=== PATIENT | male | born 1960 | race Caucasian/White ===

== ENCOUNTER 2020-11-22 09:21 | Outpatient (CLI) | payer OTHER, SELFPAY ==
--- NOTE | 2020-11-22 09:26 | NM_ITS ---
WS: [id number] NUCLEAR MEDICINE HIDA SCAN CLINICAL INFORMATION: RUQ ABDOMINAL PAIN TECHNIQUE: Following intravenous administration of mCi of technetium 99m mebrofenin, images of the ab domen were obtained over the course of 60 minutes. Next, gallbladder ejection fraction was determined by obtaining preprandial and one-hour postprandial images of the gallbladder following oral ingestio n of Ensure. COMPARISON: Ultrasound gallbladder October 02, 2020 FINDINGS: Normal hepatic uptake at 5 minutes. Hepatomegaly. Gallbladder is not visualized until 90 minutes. Nor mal common bile duct and small bowel activity.Small photopenic defect in the left hepatic lobe may re present hepatic cyst but is nonspecific. This could be further evaluated with contrast-enhanced CT ab domen pelvis liver protocol. Abnormal Gallbladder ejection fraction 1%. NV/NM hepatobiliary w phar* [id number] IMPRESSION: 1. Gallbladder is not visualized until 90 minutes with only 1% ejection fracti on. Findings consistent with gallbladder dysfunction and suggestive of chronic cholecystitis. 2. Normal common bile duct and small bowel activity. No evidence of choledocho lithiasis. 3. Small photopenic defect in the left hepatic lobe may represent hepatic cyst but is nonspecific. This could be further evaluated with contrast-enhanced CT abdomen pelvis liver protocol.
== END 2020-11-22 09:22 | disposition home or self-care (01) ==
LOC: NM 09:23
PROVIDERS: PCP Family Medicine; Visit Provider Family Medicine
DX: R10.11 Right upper quadrant pain (principal)
CPT/HCPCS: 78227; A9537

== ENCOUNTER 2020-12-03 13:07 | Outpatient (CLI) | payer OTHER, SELFPAY ==
--- NOTE | 2020-12-03 13:21 | USCV_ITS ---
Juan Escobar Age: 60 Gender: M : 1960 Exam Date: 12/03/2020 13:41 Ordering Phys: Momo Thacker MD Technologist: Ashanti Morales [place] [facility] [place]: PRESLEY BP: 165 / 88 HR: 84 Rhythm: Sinus Technical Quality: Poor because of body habitus MEASUREMENTS (Male / Female) Normal Values 2D ECHO LV Diastolic Diameter PLAX 4.5 cm 4.2 - 5.9 / 3.9 - 5.3 cm LV Systolic Diameter PLAX 3.4 cm LV Chamber Size 4.2 cm IVS Diastolic Thickness 1.2 cm 0.6 - 1.0 / 0.6 - 0.9 cm IVS Systolic Thickness 1.7 cm LVPW Diastolic Thickness 1.3 cm 0.6 - 1.0 / 0.6 - 0.9 cm LVPW Systolic Thickness 1.6 cm RV Chamber Size 2.3 cm LVOT Diameter 2.0 cm LA Diameter 4.5 cm LA Width 2.9 cm LA Height 4.0 cm RA Width 1.8 cm RA Height 4.0 cm Aorta at Sinotubular Diameter 2.9 cm M-MODE LV Diastolic Diameter MM 6.8 cm 4.2 - 5.9 / 3.9 - 5.3 cm LV Systolic Diameter MM 5.1 cm LV Ejection Fraction MM Teich 48.5 % IVS Diastolic Thickness MM 0.8 cm 0.6 - 1.0 / 0.6 - 0.9 cm IVS Systolic Thickness MM 1.2 cm LVPW Diastolic Thickness MM 0.9 cm 0.6 - 1.0 / 0.6 - 0.9 cm LVPW Systolic Thickness MM 1.2 cm RV Diastolic Diameter MM 1.0 cm Aortic Annulus Diameter 3.1 cm LA Ao Ratio MM 1.6 MV E Point Septal Separation 0.3 cm DOPPLER AV Peak Velocity 123.0 cm/s LVOT Peak Velocity 82.0 cm/s AV Area Cont Eq vti 2.2 cm squared AV Area Cont Eq pk 2.1 cm squared MV Area PHT 4.1 cm squared Mitral E to A Ratio 0.8 MV E' Velocity 33.6 cm/s Mitral E to MV E' Ratio 10.1 Mitral E to LV E' Lateral Ratio 7.9 Mitral E to LV E' Septal Ratio 14.2 TV Peak E Velocity 78.0 cm/s PV Peak Velocity 70.0 cm/s RV Acceleration Time 0.1 s RV Ejection Time 0.2 s RV AcT/ET 0.4 FINDINGS Left Ventricle Normal left ventricular cavity size. Normal left ventricular systolic function. No regional wall motion abnormalities. Left ventricular ejection fraction is estimated at 55 %. Grade I/IV diastolic dysfunction (abnormal relaxation filling pattern), normal to mildly elevated filling pressures. Right Ventricle Normal right ventricular size. RVSP could not be calculated due to incomplete tricuspid regurgitation velocity profile. Right Atrium The right atrium is normal in size. Left Atrium The left atrium is normal in size. Mitral Valve Structurally normal mitral valve. No mitral valve regurgitation. Aortic Valve No aortic valve stenosis. No aortic valve regurgitation. Tricuspid Valve Tricuspid valve not well visualized. Pulmonic Valve Pulmonic valve not well visualized. Pericardium Normal pericardium without effusion. Aorta Normal ascending aorta dimension. CONCLUSIONS 1-Normal left ventricular cavity size. Normal left ventricular systolic function. No regional wall motion abnormalities. Left ventricular ejection fraction is estimated at 55 %. Grade I/IV diastolic dysfunction (abnormal relaxation filling pattern), normal to mildly elevated filling pressures. 2-There is no pericardial effusion. 3-No significant valve abnormalities. 4-There are no prior echocardiogram studies to compare. Areli Richard MD (Electronically Signed) Final Date: 03 December 2020 19:08 S
== END 2020-12-03 13:08 | disposition home or self-care (01) ==
PROVIDERS: PCP Family Medicine; Visit Provider Family Medicine
DX: R06.09 Other forms of dyspnea (principal)
CPT/HCPCS: 93306

== ENCOUNTER 2024-07-29 13:47 | Emergency (ER) | payer MEDICARE, SELFPAY ==
[2024-07-29] VITALS (8 sets, daily range): BP systolic 141–197; BP diastolic 84–143; PULSE 89–112; RESP 16–18; TEMP 37.1; O2SAT 93–98; BMI 53.2
[2024-07-29 14:54] LABS: Basophils % 0.4 %; Eosinophils # 0.1 10^3/uL (0.0-0.8); Eosinophils % 0.4 %; Hematocrit 50.3 % (37-53); Lymphocytes # 2.3 10^3/uL (0.8-4.8); Lymphocytes % 19.9 %; Mean Corpuscular HGB Conc 31.8 g/dL (30-55); Mean Corpuscular Hemoglobin 30.1 pg (27-33); Mean Corpuscular Volume 94.5 fl (82-101); Monocytes % 8.7 %; Neutrophils # 7.97 10^3/uL (1.8-7.7); Neutrophils % 70.3 %; Nucleated Red Blood Cells % 0 %; Platelet Count 368 10^3/cmm (157-399); Red Blood Count 5.32 10^6/uL (3.85-5.65); Red Cell Distribution Width 14.2 % (12.1-15.1); White Blood Count 11.34 10^3/uL (3.29-11.43)
[2024-07-29 15:12] LABS: Alanine Aminotransferase < 5 U/L (0-41); Alkaline Phosphatase 89 U/L (40-130); Anion Gap 17.6 (5-19); Aspartate Amino Transferase 24 U/L (0-40); Blood Urea Nitrogen 17 mg/dL (8-23); Calcium 10.1 mg/dL (8.5-10.5); Carbon Dioxide 31 mmol/L (22-29); Chloride 98 mmol/L (98-107); Creatinine Clr Calc Pharmacy 111.3086; Globulin 3.6 g/dL (1.3-4.6); Glomerular Filtration Rate 67.6 mL/min (90-130); Glucose 153 mg/dL (65-115); Lipase 21 U/L (13-60); Magnesium 2.1 mg/dL (1.7-2.3); Osmolality Calculated 299 mOsm/kg (285-295); Potassium 4.6 mmol/L (3.5-5.1); Sodium 142 mmol/L (136-145); Total Protein 7.6 g/dL (6.6-8.7)
[2024-07-29] MEDS: lactated ringers 1,000 ML 999 ML IV (15:13)
--- NOTE | 2024-07-29 16:13 | CTR_ITS ---
PROCEDURE INFORMATION: Exam: CT Abdomen And Pelvis With Contrast Exam date and time: 07/29/2024 4:26 PM Age: 63 years old Clinical indication: Nausea and vomiting; Abdominal pain; Periumbilical; Prior surgery; Surgery date: 6+ months; Surgery type: Umbilical hernia, gallbladder; Additional info: N/v/d with abdominal pain TECHNIQUE: Imaging protocol: Computed tomography of the abdomen and pelvis with contrast. Radiation optimization: All CT scans at this facility use at least one of these dose optimization techniques: automated exposure control; mA and/or kV adjustment per patient size (includes targeted exams where dose is matched to clinical indication); or iterative reconstruction. Contrast material: OMNI 350; Contrast volume: 100 ml; Contrast route: INTRAVENOUS (IV); COMPARISON: NM hepatobiliary w phar* [id number] 11/22/2020 9:26 AM RADIATION DOSE METRICS: Total DLP (mGy-cm): 1591.83 FINDINGS: Lungs: Visualized lung bases are clear. Liver: Normal appearance of the liver. Gallbladder and biliary ducts: The patient is status post cholecystectomy. Pancreas: Normal appearance of the pancreas. No ductal dilation. Spleen: Normal appearance of the spleen. Adrenal glands: There is a fat density mass in the left adrenal gland measuring 2.8 cm incidentally noted suggesting a myelolipoma. Normal right adrenal gland. Kidneys and ureters: Multiple too small to characterize bilateral renal hypodensities likely representing small cysts. No hydronephrosis or nephrolithiasis bilaterally. Stomach and bowel: There is fluid in the stomach without evidence of significant luminal dilation. Proximal small bowel is normal in caliber however within the mid small bowel there is increased luminal diameter with intraluminal fluid concerning for bowel obstruction. This appears to transition within the anterior abdominal wall hernia. No evidence of pneumatosis or portal venous gas. There is minimal mesenteric edema associated with the dilated small bowel loops. There is moderate diverticular disease of the colon. No evidence of diverticulitis. Appendix: The appendix is identified and normal in appearance. No evidence of appendicitis. Intraperitoneal space: Minimal free fluid dependently in the pelvis. No evidence of free air. Vasculature: There is mild calcific atherosclerotic disease of the abdominal aorta. No evidence of an aneurysm. Pelvic calcifications, likely representing incidental phleboliths. Lymph nodes: Unremarkable. No enlarged lymph nodes. Urinary bladder: Normal appearance of the urinary bladder. No intravesicular stone. Reproductive: Unremarkable appearance of the prostate. Bones/joints: Moderate degenerative changes of the visualized spine. No fracture or aggressive osseous lesion is seen. Soft tissues: There is a lower anterior abdominal wall hernia to the right of midline containing a loop of bowel the findings concerning for obstruction. CT/CT abdomen pelvis w con* [id number] IMPRESSION: 1. Findings concerning for small bowel obstruction with transition point in and anterior abdominal wall hernia. Mild mesenteric edema associated with the dilated small bowel loops. No evidence of pneumatosis or portal venous gas to suggest advanced ischemia. Recommend surgical consultation. 2. Multiple chronic and incidental findings as detailed above. COMMENTS: Consistent with the [employer]'s Incidental Findings Committee white paper (J Am Shanice Radiol 2018): Any incidental renal lesion less than 1 cm or classified as too small to characterize, or any incidental cystic renal lesion characterized as simple-appearing, is likely benign. No follow-up imaging is recommended for these lesions per consensus recommendations based on imaging criteria.
[2024-07-29] MEDS: iohexol 350 mg/mL 500 mL Btl (per mL) IV (16:29)
[2024-07-29 16:30] LABS: Lactic Sepsis W/Reflex 1.9 mmol/L (0.5-2.2)
[2024-07-29 16:31] LABS: C Reactive Protein 14.3 mg/L (0.0-4.9)
[2024-07-29] MEDS: sodium chloride 0.9% 1,000 ML 999 ML IV (16:42)
--- NOTE | 2024-07-29 16:43 | ED_ITS ---
HPI - Abdominal Pain 2 General: Chief Complaint: Abdominal Pain Stated Complaint: vomiting, cramping, dizzy Time Seen by Provider: 07/29/24 15:50 History of Present Illness: 63-year-old male presents emergency depa rtment with a chief complaint of nausea vomiting followed by diarrhea patient Gurpreet about a week and a half ago he was sick with nausea vomiting he thought he improved from it he reports generalized abdominal cramping in which he had nausea but developed nonbloody emesis with dry heaves patient Gurpreet is a prior history of cholecystectomy reports no other abdominal surgeries patient reports generalized malaise and fatigue he does not endorse any blood in his vomitus. He reports no recent sick or ill contacts or any other associated symptoms. Associated Symptoms: Reports diarrhea, nausea and vomiting; Denies chills and fever(s) Related Data Allergies Allergy/AdvReac Type Severity Reaction Status Date / Time No Known Allergies Allergy Verified 07/29/24 14:14 Review of Systems 2 General: Reports: 10 or more systems reviewed and unremarkable except in HPI and below Const: Denies: fever(s), chills, fatigue or malaise Eyes: Denies: change in vision or blurry vision Card: Denies: chest pain or palpitations Resp: Denies: dyspnea or productive cough GI: Reports: abdominal pain, nausea, vomiting and diarrhea : Denies: flank pain Musc: Denies: extremity pain or extremity swelling Skin/Breast: Denies: rash or pruritus Neuro: Denies: headache(s) Psych: Denies: anxiety or depression Sacha/Lymph: Denies: easy bleeding All/Imm: Denies: urticaria, throat swelling or facial swelling Physical Exam 2 Const: COMMON NORMALS: no acute distress, patient oriented x3 and healthy appearing OTHER: Somewhat somewhat flat affect appreciated afebrile nontoxic-appearing HENMT: COMMON NORMALS: normocephalic and atraumatic HEAD & SCALP: n ormocephalic and atraumatic Eye: COMMON NORMALS: Equal, round and reactive pupils present and EOMs intact bilaterally PUPIL: Yes Equal, round and reactive pupils present Neck/C-Spine: COMMON NORMALS: full ROM, supple and no JVD Lymph: LYMPHATIC: no lymphadenopathy noted Chest: COMMONS NORMALS: normal inspection of the chest and normal palpation of entire chest wall Resp: COMMON NORMALS: normal respiratory effort, No retractions and clear to auscultation bilaterally EFFORT & INSPECTION: Yes able to speak in complete sentences and Yes symmetric chest movement AUSCULTATION: clear to auscultation bilaterally Cardio: COMMON NORMALS: no JVD, regular rate and regular rhythm RATE: r egular rate RHYTHM: regular rhythm GI: COMMON NORMALS: Normal to inspection, nondistended, normoactive bowel sounds present and Soft to palpation; negative for non-tender INSPECTION: Yes normal to inspection PALPATION: Y es Soft to palpation OTHER: General abdominal tenderness noted no guarding or rebound appreciated slightly hyperactive bowel sounds noted x 4 quadrants : COMMON NORMALS: Yes no CVA tenderness BLADDER/KIDNEY EXAM: Yes no CVA tenderness Back/Pelvis: COMMON NORMALS: no CVA tenderness Extremity: COMMON NORMALS: normal to inspection and full ROM Neuro: COMMON NORMALS: patient oriented x3, CN's II-XII intact bilaterally, moves all extremities and no focal motor deficits Psych: COMMON NORMALS: mental status grossly normal, Normal thought process present, cooperative and normal affect THOUGHT PROCESS: Normal thought process present Skin: COMMON NORMALS: no rashes or lesions noted GENERAL SKIN EXAM: no rashes or lesions noted Course 2 Vital Signs: Vital signs: Vital Signs Temperature 98.7 F 07/29/24 14:07 Pulse Rate 105 H 07/29/24 19:48 Respiratory Rate 16 07/29/24 19:48 Blood Pressure 174/107 07/29/24 19:48 Pulse Oximetry 98 07/29/24 19:48 Oxygen Delivery Me thod Room Air 07/29/24 19:48 MDM - Abdominal Pain Medical Decision Making Due to patient's symptoms and condition IV will be established IV fluids provided for hydration with lab work imaging obtained will continue to follow. Patient's lab work came back reassuring patient however was found to have a small bowel obstruction with a transition point anterior abdominal wall hernia with some mild mesenteric edema I discussed patient's case with Dr. Glover- call general surgeon that will be directly assessing the patient patient will have an NG tube ordered patient was complaining of increased pain and discomfort will be providing him some Dilaudid as well as Zofran for his symptoms will continue to follow. Anticipate need for probable surgical management. Will continue to follow. Discussed patient's case with the on-call surgeon we are unable to take care of this patient here due to his BMI is 53.3 as he weighs 173 kg and only 1.8 m tall in which it appears that will be a complicated surgery that we do not have the q. ability to take care of managing at our facility recommending transfer to higher level care due to patient and family's request initiated contact with [facility] will continue to follow. Patient will have an NG tube placed by nursing staff. Patient was accepted by [facility] by surgeon on-call Dr. Glze currently waiting on bed assignment patient will be going by ground transportation. Lab Data 07/29/24 14:48 07/29/24 14:48 Labs/Radiology: Radiology Impressions Abdomen/Pelvis CT 07/29/24 16:13 IMPRESSION: 1. Findings concerning for small bowel obstruction with transition point in and anterior abdominal wall hernia. Mild mesenteric edema associated with the dilated small bowel loops. No evidence of pneumatosis or portal venous gas to suggest advanced ischemia. Recommend surgical consultation. 2. Multiple chronic and incidental findings as detailed above. COMMENTS: Consistent with the [employer]'s Incidental Findings Committee white paper (J Am Shanice Radiol 2018): Any incidental renal lesion less than 1 cm or classified as too small to characterize, or any incidental cystic renal lesion characterized as simple-appearing, is likely benign. No follow-up imaging is recommended for these lesions per consensus recommendations based on imaging criteria. ADDENDUM: 07/29/24 1808 THIS REPORT CONTAINS FINDINGS THAT MAY BE CRITICAL TO PATIENT CARE. The findings were verbally communicated by me via telephone conference to AMILCAR YANG at 6:07 PM CDT on 07/29/2024. The findings were acknowledged and understood. Laboratory Results WBC 11.34 10^3/uL (3.29-11.43) 07/29/24 14:48 RBC 5.32 10^6/uL (3.85-5.65) 07/29/24 14:48 Hgb 16.00 g/dL (11.27-16.99) 07/29/24 14:48 Hct 50.3 % (37-53) 07/29/24 14:48 MCV 94.5 fl (82-101) 07/29/24 14:48 MCH 30.1 pg (27-33) 07/29/24 14:48 MCHC 31.8 g/dL (30-55) 07/29/24 14:48 RDW 14.2 % (12.1-15.1) 07/29/24 14:48 Plt Count 368 10^3/cmm (157-399) 07/29/24 14:48 MPV 10.0 fL (7.4-10.4) 07/29/24 14:48 Neut % (Auto) 70.3 % 07/29/24 14:48 Lymph % (Auto) 19.9 % 07/29/24 14:48 [place] % (Auto) 8.7 % 07/29/24 14:48 Eos % (Auto) 0.4 % 07/29/24 14:48 Baso % (Auto) 0.4 % 07/29/24 14:48 Neut # (Auto) 7.97 10^3/uL (1.8-7.7) H 07/29/24 14:48 Lymph # (Auto) 2.3 10^3/uL (0.8-4.8) 07/29/24 14:48 [place] # (Auto) 1.0 10^3/uL (0.2-0.9) H 07/29/24 14:48 Eos # (Auto) 0.1 10^3/uL (0.0-0.8) 07/29/24 14:48 Baso # (Auto) 0.0 10^3/uL (0.0-0.1) 07/29/24 14:48 Nucleated RBC % (auto) 0 % 07/29/24 14:48 Nucleated RBCs # 0.0 /100WBC 07/29/24 14:48 Sodium 142 mmol/L (136-145) 07/29/24 14:48 Potassium 4.6 mmol/L (3.5-5.1) 07/29/24 14:48 Chloride 98 mmol/L (98-107) 07/29/24 14:48 Carbon Dioxide 31 mmol/L (22-29) H 07/29/24 14:48 Anion Gap 17.6 (5-19) 07/29/24 14:48 BUN 17 mg/dL (8-23) 07/29/24 14:48 Creatinine 1.1 mg/dL (0.7-1.2) 07/29/24 14:48 GFR Calculation 67.6 mL/min (90-130) L 07/29/24 14:48 Glucose 153 mg/dL (65-115) H 07/29/24 14:48 Calculated Osmolality 299 mOsm/kg (285-295) H 07/29/24 14:48 Lactic Acid 1.9 mmol/L (0.5-2.2) 07/29/24 14:48 Calcium 10.1 mg/dL (8.5-10.5) 07/29/24 14:48 Magnesium 2.1 mg/dL (1.7-2.3) 07/29/24 14:48 Total Bilirubin 1.0 mg/dL (0.15-1.2) 07/29/24 14:48 AST 24 U/L (0-40) 07/29/24 14:48 ALT < 5 U/L (0-41) 07/29/24 14:48 Alkaline Phosphatase 89 U/L (40-130) 07/29/24 14:48 C-Reactive Protein 14.3 mg/L (0.0-4.9) H 07/29/24 14:48 Total Protein 7.6 g/dL (6.6-8.7) 07/29/24 14:48 Albumin 4.0 g/dL (3.5-5.2) 07/29/24 14:48 Globulin 3.6 g/dL (1.3-4.6) 07/29/24 14:48 Lipase 21 U/L (13-60) 07/29/24 14:48 Urine Color Yellow (Yellow) 07/29/24 17:51 Urine Appearance Clear (CLEAR) 07/29/24 17:51 Urine pH 7.0 (5-7) 07/29/24 17:51 Ur Specific [place] 1.085 (1.005-1.030) H 07/29/24 17:51 Urine Protein 1+ (Negative) A 07/29/24 17:51 Urine Glucose (UA) Negative (Normal) 07/29/24 17:51 Urine Ketones Negative (Negative) 07/29/24 17:51 Urine Blood Negative (Negative) 07/29/24 17:51 Urine Nitrate Negative (Negative) 07/29/24 17:51 Urine Bilirubin Negative (Negative) 07/29/24 17:51 Urine Urobilinogen 2.0 mg/dL (Negative) H 07/29/24 17:51 Ur Leukocyte Esterase Negative (Negative) 07/29/24 17:51 Urine RBC 3-5 /hpf (0-2) 07/29/24 17:51 Urine WBC 0-5 /hpf (0-5) 07/29/24 17:51 Ur Squamous Epith Cells 0-5 /hpf (0-5) 07/29/24 17:51 Amorphous Sediment Not Reportable 07/29/24 17:51 Urine Bacteria None seen /hpf (NONE) 07/29/24 17:51 Hyaline Casts 0-4 /lpf H 07/29/24 17:51 All radiology interpretation(s) finalized by discharge Discharge Plan Discharge Patient Disposition: Xfer Short-Term Hosp Clinical Impression: Abdominal wall hernia, SBO (small bowel obstruction), Incarcerated ventral hernia Condition: Stable Referrals: Momo Thacker MD [Primary Care Provider] - Coding Level of Care Code ED Financial Specialist for [facility]
[2024-07-29] MEDS: dicyclomine 20 mg Tablet PO (17:04)
[2024-07-29] MEDS: ondansetron 2 mg/ML SDV 2 mL 4 MG IVP ×2 (17:05→18:37)
[2024-07-29 17:59] LABS: Bilirubin Urine Negative (Negative); Blood Urine Negative (Negative); Glucose Urine UA Negative (Normal); Ketones Urine Negative (Negative); Leukocyte Esterase Urine Negative (Negative); Nitrate Urine Negative (Negative); Protein Urine 1+ (Negative); Urine Appearance Clear (CLEAR); Urine Color Yellow (Yellow)
[2024-07-29 18:04] LABS: Add Urine Microscopic? YES; Bacteria Urine None Seen /hpf; Hyaline Casts Urine 0-4 /lpf; Specific Gravity, Urine 1.085 (1.005-1.030); Squamous Epithelial Cell Urine 0-5 /hpf (0-5); WBC Urine 0-5 /hpf (0-5)
[2024-07-29] MEDS: HYDROmorphone 1 mg/mL INJ 1 mL 0.5 MG IVP (18:37)
--- NOTE | 2024-07-29 18:44 | PM.CONSULT ---
Providers/Reason For Consult Consulting Physician/Specialty*: General surgery Reason for Consult*: Ventral hernia Primary Care Provider: Momo Thacker MD History of Present Illness History of Present Illness Juan Escobar is a 63 year old male with morbid obesity and history of ventral hernia repair with mesh about 20 years ago, he presents to the hospital complaining of 2 days of abdominal pain nausea vomiting and obstipation. A CT scan done in the ER shows evidence of a possible incarcerated ventral hernia causing a small bowel obstruction. Currently patient is doing okay complains of some abdominal pain and nausea, last episode of vomiting was when he presented to the ER. Review of Systems General: Reports: 10 or more systems reviewed and unremarkable except in HPI and below Medications/Allergies Allergies Allergy/AdvReac Type Severity Reaction Status Date / Time No Known Allergies Allergy Verified 07/29/24 14:14 Vitals/I&O/Wt Last Vital Signs Temp 98.7 F 07/29/24 14:07 Pulse 100 07/29/24 14:07 Resp 18 07/29/24 18:37 BP 142/84 07/29/24 14:07 Pulse Ox 95 07/29/24 18:37 O2 Del Method Room Air 07/29/24 14:07 07/29/24 07/29/24 07/29/24 06:59 14:59 22:59 Intake Total 1000 / 1000 Balance 1000 / 1000 Weight last 48 hrs Weight 382 lb Physical Exam Narrative: General : Patient is well developed , no acute distress, oriented x3 Head : Normal cephalic, a-traumatic. Nose : Mucous membranes are without erythema. Lungs : Equal chest rise bilaterally, no use of accessory muscles, trachea is midline. CV : Rate and rhythm are normal. Abdomen : Large adipose pannus, surgical incisions noted from previous midline ventral hernia repair, abdomen is mildly tender, fascial defect cannot be assessed due to patient body habitus, on my examination of the abdominal wall and with the patient having a Valsalva maneuver I can feel a large area of weakness in the periumbilical region. The palpation of the abdominal wall was done in the area where hernia suspected with the hopes of reducing the hernia but I was unable to identify the fascial defect due to patient body habitus Extremities : No edema. Upper extremities are normal bilaterally. Back : non-tender to palpation, no CVA tenderness. Data 07/29/24 14:48 07/29/24 14:48 A&P Assessment and plan (1) Abdominal wall hernia: (2) SBO (small bowel obstruction): (3) Incarcerated ventral hernia: Plan After complete history physical examination and review of all available clinical data the following is my assessment. This is a patient with morbid obesity who presents with small bowel obstruction in the setting of a recurrent incarcerated ventral hernia. Patient is currently stable. I have personally reviewed the CT scan of the abdomen and pelvis, there is a large hernia defect in the periumbilical region where we can see a loop of bowel going in and a reduction in caliber in the outflow of that loop of bowel. At this level there are several small defects consistent with [place] cheese pattern, at this point in the abdominal wall the distance between rectus muscles is 13 cm and the distance between the fascial edges is 10 cm, immediately superior to this area the abdominal wall is completely attenuated and there is no interface of fat between the bowel and the suspected area of the previous ventral mesh. this findings raise a concern for the possibility of needing a major abdominal wall reconstruction as part of his ventral hernia repair, my main concern is that due to the size of the defect and the patient body habitus including large amount of intra-abdominal fat there is very little chance of a primary closure of the defect, unfortunately we do not have availability of biologic or absorbable mesh to be usable as a bridge. In addition the evidence of loss of architecture of the abdominal wall immediately superior to the hernia defect indicate that this repair may require excision of the previous mesh as it is closely related to the bowel, this can result in a bigger defect requiring major abdominal wall reconstruction which we cannot offer in our institution, taking this in consideration my recommendation is transfer to higher level of care where there is availability and expertise for management of complex ventral hernias, as patient will require surgery during this admission due to evidence of a small bowel obstruction caused by the hernia. I have discussed with the patient my assessment, patient and family member are agreeable with this plan, at the time of my evaluation patient is stable for transfer to higher level of care. Coding Level of Care Code 44810 Diagnoses Abdominal wall hernia K43.9 SBO (small bowel obstruction) K56.609 Incarcerated ventral hernia K43.6
--- NOTE | 2024-07-29 20:48 | XRR_ITS ---
PROCEDURE INFORMATION: Exam: XR Chest Exam date and time: 07/29/2024 8:50 PM Age: 63 years old Clinical indication: Device placement; Ng tube; Prior surgery; Surgery date: 6+ months; Surgery type: Gb; Patient HX: Check S/P ng placement; Additional info: Ng tube placement TECHNIQUE: Imaging protocol: Radiologic exam of the chest. Views: 1 view. COMPARISON: CT abdomen pelvis w con* [id number] 07/29/2024 4:26 PM FINDINGS: Tubes, catheters and devices: Esophagogastric tube extends into the left upper abdomen suggesting location within the stomach. Lungs: Single frontal view of the lower chest and upper abdomen. Visualized lung bases are clear. Bones/joints: Moderate scattered spinal degenerative changes. Gastrointestinal tract: Unremarkable bowel gas pattern in the upper abdomen. Organs: Prior cholecystectomy clips in the right upper quadrant. XR/XR chest 1V portable [id number] IMPRESSION: 1. Esophagogastric tube extends into the left upper abdomen suggesting location within the stomach.
[2024-07-29] MEDS: sodium chloride 0.9% 1,000 ML 1000 ML IV (21:15)
[2024-07-30] VITALS: BP 177/95; PULSE 96; RESP 20; O2SAT 98
[2024-07-30 00:30] VITALS: BP 150/105; PULSE 90; RESP 18; O2SAT 96
[2024-07-30 03:53] VITALS: BP 162/77; PULSE 86; O2SAT 97
[2024-07-30 05:26] VITALS: PULSE 90; RESP 14; O2SAT 97
[2024-07-30 05:30] VITALS: BP 151/71; PULSE 85; RESP 16; O2SAT 94
[2024-07-30] MEDS: ondansetron 2 mg/ML SDV 2 mL 4 MG IVP (06:24)
[2024-07-30 07:41] VITALS: BP 149/68; PULSE 88; O2SAT 93
== END 2024-07-30 07:30 | disposition short-term general hospital (02) ==
PROVIDERS: Emergency Medicine; Emergency Provider Emergency Medicine; PCP Family Medicine
DX: K43.9 Ventral hernia without obstruction or gangrene (principal); K43.6 Other and unspecified ventral hernia with obstruction, without gangrene; K56.609 Unspecified intestinal obstruction, unspecified as to partial versus complete obstruction
CPT/HCPCS: 36415; 71045; 74177; 80053; 81001; 83605; 83690; 83735; 85025; 86140; 96361; 96374; 96375; 96376; 99285; J1170; J2405; J7030; J7120